=== PATIENT | female | born 1950 | race Two or more races ===

== ENCOUNTER 2023-11-21 16:18 | Emergency (ER) | payer OTHER, MEDICAID ==
[~2023-11-21] VITALS: Ht 167.6 cm; Wt 81.9 kg
[2023-11-21 16:35] VITALS: BP 106/83; PULSE 85; RESP 18; O2SAT 96
== END 2023-11-21 19:40 | disposition left against medical advice (07) ==
LOC: ER 16:18
DX: S61.412A Laceration without foreign body of left hand, initial encounter (principal); Z53.21 Procedure and treatment not carried out due to patient leaving prior to being seen by health care provider; W26.8XXA Contact with other sharp object(s), not elsewhere classified, initial encounter; Y93.89 Activity, other specified; Y92.89 Other specified places as the place of occurrence of the external cause; Y99.8 Other external cause status